=== PATIENT | female | born 2000 | race Caucasian/White ===

== ENCOUNTER 2025-01-22 01:11 | Emergency (ER) | payer MEDICAID ==
[~2025-01-22] VITALS: Ht 157.5 cm; Wt 66.7 kg
[~2025-01-22 01:11] MED LIST: T3 PO
[2025-01-22] MEDS ORDERED: METOCLOPRAMIDE HCL 10MG TABLET PO ONE (02:45)
[2025-01-22] MEDS ORDERED: KETOROLAC 15MG/ML VIAL IM ONE (02:45)
[2025-01-22] MEDS ORDERED: NAPR-1176 MT (05:15)
[2025-01-22] MEDS ORDERED: LIDO700A15 TP (05:15)
[2025-01-22] MEDS: KETOROLAC 15MG/ML VIAL IM NR (06:48)
[2025-01-22] MEDS: METOCLOPRAMIDE HCL 10MG TABLET PO NR (06:48)
[2025-01-22 06:59] VITALS: BP 111/71; PULSE 80; RESP 18; TEMP 36.9; O2SAT 100
== END 2025-01-22 07:11 | disposition home or self-care (01) ==
LOC: ER 01:59
DX: S09.90XA Unspecified injury of head, initial encounter (principal); J45.909 Unspecified asthma, uncomplicated; Z98.890 Other specified postprocedural states; Y04.0XXA Assault by unarmed brawl or fight, initial encounter; Y93.89 Activity, other specified; Y92.89 Other specified places as the place of occurrence of the external cause; Y99.8 Other external cause status
CPT/HCPCS: 99285; 70450; 81025; 73130; 96372; J1885; J8597